=== PATIENT | female | born 1950 | race Asian ===

== ENCOUNTER 2022-12-11 11:09 | Emergency (ER) | payer MEDICARE ==
[~2022-12-11] VITALS: Ht 160 cm; Wt 77.7 kg
[2022-12-11 11:12] VITALS: BP 143/82; PULSE 76; RESP 20; TEMP 98.8
[2022-12-11] MEDS ORDERED: AMOX TR/POT CLAV 875 MG/125 MG TABLET PO ONE (14:15)
[2022-12-11] MEDS ORDERED: PERTUSS(ACELL),DIPH,TET VAC/PF 0.5 ML SYRINGE IM. ONE (14:15)
[2022-12-11] MEDS ORDERED: BACITRACIN 0.9 GM PACKET OINTMENT TP ONE (14:15)
[2022-12-11] MEDS ORDERED: RABIES IMMUNE GLOBULIN/PF 300 UNITS/ML 5 ML VIAL IM. ONE (14:15)
[2022-12-11] MEDS ORDERED: RABIES VACCINE, HUMAN DIPLOID/PF 2.5 UNITS/ML VIAL IM. ONE (14:15)
[2022-12-11] MEDS ORDERED: AMOX1TAB16 PO (14:18)
== END 2022-12-11 15:18 | disposition home or self-care (01) ==
LOC: EMS 11:09
DX: S61.451A Open bite of right hand, initial encounter (principal); E11.9 Type 2 diabetes mellitus without complications; I10 Essential (primary) hypertension; Z23 Encounter for immunization; W55.01XA Bitten by cat, initial encounter; Y93.89 Activity, other specified; Y92.89 Other specified places as the place of occurrence of the external cause; Y99.8 Other external cause status
CPT/HCPCS: 82962; 90375; 90471; 90675; 90715; 99284